=== PATIENT | male | born 1945 | race Caucasian/White ===

== ENCOUNTER 2018-03-18 16:30 | Observation (INO) | payer MEDICARE, OTHER ==
[2018-03-18] MEDS ORDERED: NS 0.9% 1000 ML* 1,000 ML IV ONE (17:00)
--- NOTE | 2018-03-18 17:35 | ED ---
Dizziness - HPI Summary HPI Summary: A 73 y/o M brought in by ambulance presents to ED with c/o acute on chronic dizzy spell with an episode today. Associated sx: rapid HR (150-160bpm at home) onset assoc with low BP at home approx 1515, lightheadedness. (Triage note reviewed by nurse with BP's and HR's that pt noted at home). Rapid HR and hypotension not documented by EMS or in ED. Denies CP, fever, cough. Pert PMHx : extensive cardiac hx including: ablation, PVCs, PACs, CABG, echocardiogram, Holter monitor. Sees Dr. Gamez, cardio at [facility]. Daily medications include baby aspirin, half pill of Metoprolol, Lovastatin. He is a former smoker. ETOH 2 beers a day. Smokes marijuana. Vitals signs at bedside: 79 bpm, BP: 127/79. - History Of Current Complaint Chief Complaint: EDDizziness Stated Complaint: POSS FAST HR Time Seen by Provider: 03/18/18 17:28 Hx Obtained From: Patient, EMS Onset/Duration: Still Present Timing: Constant Severity Initially: Moderate Severity Currently: Moderate Character: Lightheaded, Dizzy Aggravating Factor(s): Nothing Alleviating Factor(s): Nothing Associated Signs And Symptoms: Positive: Palpitations - rapid, Other: - pos: lightheadedness; neg: cough. Negative: Chest Pain, Fever - Allergies/Home Medications Allergies/Adverse Reactions: Allergies Allergy/AdvReac Type Severity Reaction Status Date / Time No Known Allergies Allergy Verified 03/18/18 16:46 PMH/Surg Hx/FS Hx/Imm Hx Previously Healthy: No Cardiovascular History: Reports: Hx Coronary Artery Disease, Hx Hypertension, Other Cardiovascular Problems/Disorders - CABG, echocardio, ablation, PVCs, PACs , Opthamlomology History: Denies: Hx Legally Blind EENT History: Denies: Hx Deafness Neurological History: Denies: Hx Dementia - Surgical History Surgery Procedure, Year, and Place: CABG at [facility]. Appy in [place]. Sinus surgery at [facility] Infectious Disease History: No Infectious Disease History: Denies: Traveled Outside the [place] in Last 30 Days - Family History Known Family History: Positive: Cardiac Disease - mom - Social History Alcohol Use: Daily Hx Substance Use: Yes Substance Use Type: Reports: Marijuana Hx Tobacco Use: Yes Smoking Status (MU): Former Smoker Review of Systems Negative: Fever Positive: Palpitations. Negative: Chest Pain Negative: Cough Gastrointestinal: Negative Musculoskeletal: Negative Skin: Negative Neurological: Other - pos: lightheadedness, dizziness Psychological: Normal All Other Systems Reviewed And Are Negative: Yes Physical Exam - Summary Physical Exam Summary: Appearance: Well-appearing, no pain distress, well-nourished Skin: Warm, color reflects adequate perfusion, dry Head: Normal Head/Face inspection, atraumatic Eyes: Conjunctiva clear ENT: Normal inspection Dental: Multiple caries, bad dentition Neck: Supple, no nodes, no JVD Respiratory: Lungs clear, normal breath sounds, no respiratory distress Cardio: RRR, No murmur, pulses normal, brisk capillary refill Abdomen: Soft, nontender Bowel sounds: Present Musculoskeletal: Strength Intact/ROM intact, no calf tenderness, no edema. Psychological: Normal Neuro: Alert, muscle tone normal, no focal deficit Triage Information Reviewed: Yes Vital Signs On Initial Exam: Initial Vitals Temp Pulse Resp BP Pulse Ox 98.7 F 88 18 149/90 97 03/18/18 16:41 03/18/18 16:41 03/18/18 16:41 03/18/18 16:41 03/18/18 16:41 Vital Signs Reviewed: Yes Diagnostics - Vital Signs Vital Signs Temp Pulse Resp BP Pulse Ox 03/18/18 16:44 85 98 03/18/18 16:43 82 149/90 97 03/18/18 16:41 98.7 F 88 18 149/90 97 - Laboratory Result Diagrams: 03/18/18 17:24 03/18/18 17:24 Lab Statement: Any lab studies that have been ordered have been reviewed, and results considered in the medical decision making process. - Radiology CXR Radiology Interpretation Completed By: ED Physician Summary of Radiographic Findings: cardiomegaly; infiltrate R base. - EKG 1720 Cardiac Rate: NL - 72 bpm EKG Rhythm: Sinus Rhythm ST Segment: Non-Specific - no acute changes EKG Comparison: Other - No prior for comparison Summary of EKG Findings: EKG at 1720 reveals SR 72bpm, 1st degree AV Block (267) , sinus pause, nml IVCT, nml QTc, Left axis (-33), no acute changes, poor R wave progression V1-V3, no prior to compare Re-Evaluation - Re-Evaluation First Eval Re-Evaluation Time: 19:00 Change: Unchanged Comment: denies CP, SOB. No tachycardia or hypotension. Stood to void at bedside without sxs. Advised that will do CTA for further evaluation. Care to Dr. Seay at change of shift. Dizzy Course/Dx - Course Course Of Treatment: Pt is a 73 y/o M presenting with acute on chronic dizzy spell today. Associated sx: rapid HR (150-160bpm at home) onset approx 1515, lightheadedness. Pert PMHx: extensive cardiac hx including: ablation, PVCs, PACs , CABG, echocardiogram, Holter monitor. Sees Dr. Gamez, cardio at [facility]. Daily medications include baby aspirin, half pill of Metoprolol, Lovastatin. CXR shows cardiomegaly and infiltrates in R base. Lab work is unremarkable except Ddimer is 299, BNP: 226. Initial troponin is 0.01. UA reviewed. Allergies noted, high blood pressure noted. Pt medications reviewed this visit. Pt will be signed out to Dr. Seay at shift change pending CTA, dispo. - Diagnoses Differential Diagnosis/HQI/PQRI: Anxiety, Coronary Artery Disease, CVA, Medication Reaction, Metabolic Abnormality Provider Diagnoses: Dizziness Discharge - Sign-Out/Discharge Documenting (check all that apply): Sign-Out Patient Signing out patient TO: Brandy Seay - Pending CTA, dispo - Discharge Plan - Attestation Statements Document Initiated by Scribe: Yes Documenting Scribe: Rodri Hernandez Provider For Whom Sonu is Documenting (Include Credential): Dr. Christi Zamorano MD Scribe Attestation: Rodri Youngblood, scribed for Dr. Christi Zamorano MD on 03/18/18 at 2054. Scribe Documentation Reviewed: Yes Provider Attestation: The documentation as recorded by the Rodri walker accurately reflects the service I personally performed and the decisions made by me, Dr. Christi Zamorano MD Status of Scribe Document: Viewed
[2018-03-18 17:39] LABS: ABS Basophils 0.1 10^3/ul (0-0.2); ABS Eosinophils 0.2 10^3/ul (0-0.6); ABS Lymphocytes 1.3 10^3/ul (1.0-4.8); ABS Monocytes 0.8 10^3/ul (0-0.8); ABS Neutrophils 5.7 10^3/ul (1.5-7.7); ABS Nucleated RBC 0 10^3/ul; Eosinophil % 2.2 %; Hematocrit 40 % (42-52); Hemoglobin 13.1 g/dl (14.0-18.0); Lymphocyte % 16.1 %; Mean Corpuscular HGB Conc 33 g/dl (31-36); Mean Corpuscular Hemoglobin 27 pg (27-31); Mean Corpuscular Volume 82 fL (80-94); Mean Platelet Volume 9.5 fL (7.4-10.4); Nucleated Red Blood Cells % 0.1; Platelet Count 236 10^3/ul (150-450); Red Blood Count 4.89 10^6/ul (4.00-5.40); Red Cell Distribution Width 15 % (10.5-15)
[2018-03-18 17:49] LABS: INR 0.86 (0.77-1.02)
[2018-03-18 18:01] LABS: ALT 23 U/L (7-52); AST 27 U/L (13-39); Albumin/Globulin Ratio 1.5 (1-3); Alkaline Phosphatase 82 U/L (34-104); Anion Gap 7 mmol/L (2-11); BUN/Creatinine Ratio 8.8 (8-20); Blood Urea Nitrogen 7 mg/dL (6-24); C Reactive Protein 7.41 mg/L (<8.01); CO2 Carbon Dioxide 26 mmol/L (22-32); Calcium 9.2 mg/dL (8.6-10.3); Chloride 98 mmol/L (101-111); EGFR Non-African American 94.8 (>60); Globulin 2.6 g/dL (2-4); Glucose 105 mg/dL (70-100); Magnesium 1.8 mg/dL (1.9-2.7); Potassium 4.5 mmol/L (3.5-5.0); Sodium 131 mmol/L (135-145); Total Protein 6.6 g/dL (6.4-8.9)
[2018-03-18 18:06] LABS: Alcohol < 10 mg/dL (<10)
[2018-03-18 18:20] LABS: TSH (Thyroid Stimulating Horm) 1.12 mcIU/mL (0.34-5.60)
[2018-03-18 18:29] LABS: Urine Appearance Clear; Urine Bacteria Absent (Absent); Urine Bilirubin Negative (Negative); Urine Blood 1+ (Negative); Urine Color Straw; Urine Glucose Negative (Negative); Urine Ketones Negative (Negative); Urine Nitrite Negative (Negative); Urine Protein 1+(30 mg/dL) (Negative); Urine Red Blood Cell Trace(0-2/hpf) (Absent); Urine Specific Gravity 1.005 (1.010-1.030); Urine Urobilinogen Negative (Negative); Urine White Blood Cell Trace(0-5/hpf) (Absent)
[2018-03-18] MEDS ORDERED: Iodixanol* (CONTRAST) 320 MG/ML 100 ML SDV IV ONE (19:36)
--- NOTE | 2018-03-18 21:19 | ED ---
Progress - Progress Note Progress Note: Sign-out from Dr. Zamorano at 1900. EKG was remarkable for arrythmia. Patient will be admitted to the hospital. This plan was discussed with the patient and he was agreeable with this plan. Chest CTA per radiologist: No PE. No additional findings to correlate with patient's symptamology. ED Provider has reviewed this imaging report. Re-Evaluation - Re-Evaluation First Eval Re-Evaluation Time: 19:00 Change: Unchanged Comment: denies CP, SOB. No tachycardia or hypotension. Stood to void at bedside without sxs. Advised that will do CTA for further evaluation. Care to Dr. Seay at change of shift. Course/Dx - Course Course Of Treatment: Sign-out from Dr. Zamorano at 1900. EKG was remarkable for arrythmia. Patient will be admitted to the hospital. This plan was discussed with the patient and he was agreeable with this plan. Paged Rosario Padilla, Hospitalist at [phone]. Chest CTA per radiologist: No PE. No additional findings to correlate with patient's symptamology. ED Provider has reviewed this imaging report. Rosario Padilla accepted patient for admissino at 2341. - Diagnoses Provider Diagnoses: Dizziness, Arrhythmia - Provider Notifications Discussed Care Of Patient With: Rosario Padilla - Hospitalist Time Discussed With Above Provider: 23:41 Instructed by Provider To: Admit As Inpatient Discharge - Sign-Out/Discharge Documenting (check all that apply): Patient Departure, Receiving Sign-Out Receiving patient FROM: Christi Zamorano - Discharge Plan Condition: Stable Disposition: ADMITTED TO [facility] - Attestation Statements Document Initiated by Scribe: Yes Documenting Scribe: Tevin Wen Provider For Whom Scribe is Documenting (Include Credential): Brandy Seay MD Scribe Attestation: Tevin Youngblood, scribed for Brandy Seay MD on 03/18/18 at 2342. Status of Scribe Document: Ready
[2018-03-18] MEDS ORDERED: Albuterol 2.5 MG/3 ML NEB.SOL* (0.083%) INH PRN (23:58)
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
[2018-03-19 01:11] LABS: Barbiturates Urine Screen None Detected (None Detect); Benzodiazepine Urine Screen None Detected (None Detect); Urine Cannabinoids Screen Presumptive Positive (None Detect)
[2018-03-19] MEDS: NS 0.9% 1000 ML* 1,000 ML IV SCH ×2 (01:42→16:58)
[2018-03-19 05:54] LABS: HDL Cholesterol 55.3 mg/dL; Magnesium 1.9 mg/dL (1.9-2.7); Phosphorus 3.8 mg/dL (2.5-5.0)
[2018-03-19 06:39] LABS: TSH (Thyroid Stimulating Horm) 1.95 mcIU/mL (0.34-5.60)
[2018-03-19 06:40] LABS: Free T4 0.78 ng/dL (0.61-1.12)
[2018-03-19] MEDS ORDERED: Magnesium Sulfate 2 GM IV* 2 GM/50 ML BAG IVPB ONE (07:41)
[2018-03-19] MEDS: Aspirin 81 mg CHEW TAB* 81 MG TAB.CHEW PO SCH (07:44)
[2018-03-19] MEDS: Atorvastatin* 10 MG TAB PO SCH (07:44)
[2018-03-19] MEDS: Metoprolol Tartrate TAB* 25 MG PO SCH (07:44)
[2018-03-19] MEDS: Acetaminophen TAB* 325 MG PO PRN ×2 (07:44→16:11)
[2018-03-19 08:06] LABS: ABS Basophils 0.1 10^3/ul (0-0.2); ABS Eosinophils 0.2 10^3/ul (0-0.6); ABS Lymphocytes 1.4 10^3/ul (1.0-4.8); ABS Monocytes 0.6 10^3/ul (0-0.8); ABS Neutrophils 4.5 10^3/ul (1.5-7.7); ABS Nucleated RBC 0 10^3/ul; Eosinophil % 3.5 %; Hematocrit 39 % (42-52); Hemoglobin 12.8 g/dl (14.0-18.0); Lymphocyte % 20.6 %; Mean Corpuscular HGB Conc 33 g/dl (31-36); Mean Corpuscular Hemoglobin 27 pg (27-31); Mean Corpuscular Volume 83 fL (80-94); Mean Platelet Volume 10.1 fL (7.4-10.4); Nucleated Red Blood Cells % 0.1; Platelet Count 254 10^3/ul (150-450); Red Blood Count 4.75 10^6/ul (4.00-5.40); Red Cell Distribution Width 15 % (10.5-15); White Blood Count 6.9 10^3/ul (3.5-10.8)
[2018-03-19 08:22] LABS: EGFR Non-African American 82.7 (>60); Potassium 4.2 mmol/L (3.5-5.0)
--- NOTE | 2018-03-19 14:36 | PN ---
Subjective Date of Service: 03/19/18 Interval History: Resting in bed. Symptom free since admission. Tele sins with first degree with average bpm 70 Objective Active Medications: Acetaminophen (Tylenol Tab*) 650 mg PO Q6H PRN PRN Reason: FEVER/PAIN Last Admin: 03/19/18 07:44 Dose: 650 mg Albuterol (Ventolin 2.5 Mg/3 Ml Neb.Tracie*) 2.5 mg INH [id number] AWAKE PRN PRN Reason: sob/wheezing Aspirin (Aspirin 81 Mg Chew Tab*) 81 mg PO DAILY [facility] Last Admin: 03/19/18 07:44 Dose: 81 mg Atorvastatin Calcium (Lipitor*) 10 mg PO DAILY [facility] Last Admin: 03/19/18 07:44 Dose: 10 mg Sodium Chloride (Ns 0.9% 1000 Ml*) 1,000 mls @ 100 mls/hr IV PER RATE [facility] Last Admin: 03/19/18 01:42 Dose: 100 mls/hr Metoprolol Tartrate (Lopressor Tab*) 12.5 mg PO DAILY [facility] Last Admin: 03/19/18 07:44 Dose: 12.5 mg Vital Signs - 8 hr 03/19/18 03/19/18 03/19/18 07:22 07:43 07:47 Temperature 97.2 F Pulse Rate 58 Respiratory 20 Rate Blood Pressure 143/84 (mmHg) O2 Sat by Pulse 98 Oximetry Oxygen Devices in Use Now: None Appearance: Chronically ill appearing Eyes: No Scleral Icterus Ears/Nose/Mouth/Throat: Clear Oropharnyx, Mucous Membranes Moist Neck: NL Appearance and Movements; NL JVP Respiratory: Symmetrical Chest Expansion and Respiratory Effort, Clear to Auscultation Cardiovascular: NL Sounds; No Murmurs; No JVD, RRR, No Edema Abdominal: NL Sounds; No Tenderness; No Distention Lymphatic: No Cervical Adenopathy Extremities: No Edema Skin: No Rash or Ulcers Neurological: Alert and Oriented x 3 Nutrition: Taking PO's Result Diagrams: 03/19/18 05:25 03/19/18 05:25 Additional Lab and Data: Laboratory Results - last 24 hr 03/18/18 03/19/18 03/19/18 20:47 00:25 00:46 WBC RBC Hgb Hct MCV MCH MCHC RDW Plt Count MPV Neut % (Auto) Lymph % (Auto) Alfalfa % (Auto) Eos % (Auto) Baso % (Auto) Absolute Neuts (auto) Absolute Lymphs (auto) Absolute Monos (auto) Absolute Eos (auto) Absolute Basos (auto) Absolute Nucleated RBC Nucleated RBC % Sodium Potassium Chloride Carbon Dioxide Anion Gap BUN Creatinine Est GFR ( Amer) Est GFR (Non-Af Amer) BUN/Creatinine Ratio Glucose Calcium Ionized Calcium Phosphorus Magnesium Troponin I 0.02 0.02 Triglycerides Cholesterol LDL Cholesterol HDL Cholesterol TSH Free T4 Urine Opiates Screen None detected Ur Barbiturates Screen None detected Ur Phencyclidine Scrn None detected Ur Amphetamines Screen None detected U Benzodiazepines Scrn None detected Urine Cocaine Screen None detected U Cannabinoids Screen Presumptive positive A 03/19/18 03/19/18 03/19/18 05:25 05:25 05:25 WBC 6.9 RBC 4.75 Hgb 12.8 L Hct 39 L MCV 83 MCH 27 MCHC 33 RDW 15 Plt Count 254 MPV 10.1 Neut % (Auto) 65.2 Lymph % (Auto) 20.6 Alfalfa % (Auto) 9.2 Eos % (Auto) 3.5 Baso % (Auto) 1.5 Absolute Neuts (auto) 4.5 Absolute Lymphs (auto) 1.4 Absolute Monos (auto) 0.6 Absolute Eos (auto) 0.2 Absolute Basos (auto) 0.1 Absolute Nucleated RBC 0 Nucleated RBC % 0.1 Sodium 136 Potassium 4.2 Chloride 102 Carbon Dioxide 26 Anion Gap 8 BUN 9 Creatinine 0.90 Est GFR ( Amer) 100.1 Est GFR (Non-Af Amer) 82.7 BUN/Creatinine Ratio 10.0 Glucose 107 H Calcium 9.0 Ionized Calcium 1.20 Phosphorus 3.8 Magnesium 1.9 Troponin I Triglycerides 149 Cholesterol 165 LDL Cholesterol 80 HDL Cholesterol 55.3 TSH 1.95 Free T4 0.78 Urine Opiates Screen Ur Barbiturates Screen Ur Phencyclidine Scrn Ur Amphetamines Screen U Benzodiazepines Scrn Urine Cocaine Screen U Cannabinoids Screen EKG Data: ns not acute st t changes Assess/Plan/Problems-Billing Assessment: this is 73 yr old wm with hx of recent cabg 11/2017 ? hx of cardiac ablation in the past called ems after he had an episode of increased hr to 160 with sbp 70s on home montiering and felt dizzy. pt had trop times two neg ua neg even had cta of chest came back neg - Patient Problems (1) CAD (coronary artery disease) Comment: - S/P Cabg 11/2017 - Continue his home dose of asa and lopresor - Trops negative (2) COPD (chronic obstructive pulmonary disease) Comment: - Stable - Supportive care (3) Cardiac arrhythmia Comment: - [facility] revealed numerous PACs and PVCs. In addition, patient had runs of SVT with longest 53 seconds which appeared to be paroxyasmal atria tachycardia, 7 runs of nonsustained VT with longest being 11 beats (all asymptomatic), and symptoms of dizziness and lightheadedness were recorded in diary and reported with underlying sinus rhythm. - Previous ablasion for SVT - Seen in [facility] and we are awaiting reports. - Not orthostatic this am - Tsh and free T4 wnl - Continue his lopressor home dose - [facility] for [facility] in one month, noted small pericardial effusion with no tamponade on previous echo, and due to presenting symptoms (4) EtOH dependence Comment: - Now drinks only two beers daily has cut down from 6 beers daily since 11/2017 - Monitor for withdrawl - Supportive care (5) Hyperlipidemia Comment: - Continue his current dose of statin (6) Hyponatremia Comment: - 131 on admission. Now 136 (7) Hypotension Comment: - Per yesterdays EMS report patient's home BP read: BP 102/70 and HR 152 at 1507 and BP 77/61 and HR 161 - Currently hypertensive. - Cont home medications as same Attending: Nicolas Lopez
--- NOTE | 2018-03-19 16:14 | ECHO ---
Patient: DINA LYNCH [facility] Rec#: [id number] : 1945 Date: 03/19/2018 Age: 73y Height: 173 cm / 68.1 in Weight: 77.1 kg / 169.9 lbs Sex: M BSA: 1.91 Room#: [facility] Admit Date#: 03/18/2018 Type: Inpatient Referring: Razia Valdez Reading: Amish Lewis MD Behavior Interventionist: Citlaly Jarrett RD Transthoracic Echocardiogram Indication: Pericardial effusion, s/p CABG, dizziness BP: 143/84 HR: 67 Rhythm: NSR with PVCs Findings History: S/P ablation, PVCs, PACs, s/p CABG, HTN, COPD, CHF. Technical Comments: The study quality is good. Completed at 1545. Left Ventricle: The left ventricular chamber size is normal. There is no left ventricular hypertrophy. Global left ventricular wall motion and contractility are within normal limits. Left ventricular systolic function is at the lower limits of normal. The estimated ejection fraction is 50-55%. Post surgical hypokinesis of the interventricular septum is observed consistent with coronary artery bypass. Abnormal left ventricular diastolic function is observed. The left ventricular diastolic filling pattern is consistent with pseudonormalization. Left Atrium: The left atrium is moderately dilated. Right Ventricle: Moderator Band present. The right ventricular cavity size is normal. The right ventricular global systolic function is normal. Right Atrium: The right atrium is moderately dilated. There is evidence of an atrial septal aneurysm. No obvious shunting. Aortic Valve: The aortic valve is trileaflet. The aortic valve leaflets are mildly thickened. There is aortic annular calcification. There is no evidence of aortic regurgitation. There is no evidence of aortic stenosis. Mitral Valve: The mitral valve leaflets are mildly thickened. There is trace to mild mitral regurgitation. Tricuspid Valve: The tricuspid valve leaflets are normal. There is trace to mild tricuspid regurgitation. The right ventricular systolic pressure is estimated at 19 mmHg. No pulmonary hypertension is noted. Pulmonic Valve: The pulmonic valve appears normal. There is no evidence of pulmonic regurgitation. There is no pulmonic stenosis. Pericardium: There is no significant pericardial effusion. Aorta: There is no dilatation of the ascending aorta. There is no dilatation of the aortic arch. There is mild dilatation of the aortic root. Pulmonary Artery: The main pulmonary artery appears normal. Venous: The inferior vena cava appears normal in size. There is a greater than 50% respiratory change in the inferior vena cava dimension. Conclusions Left ventricular systolic function is at the lower limits of normal. The estimated ejection fraction is 50-55%. Global left ventricular wall motion and contractility are within normal limits. The left ventricular chamber size is normal. The left atrium is moderately dilated. The right atrium is moderately dilated. Functionally benign heart valves. There is no significant pericardial effusion. There is no prior echocardiogram available to compare with at this time. Measurements Name Value Normal Range RVIDd (AP) 2D 3.5 cm (0.9 - 2.6) RVDdMajor (2D) 4.3 cm (2.2 - 4.4) RAd ISD 4CH 6.1 cm (3.4 - 4.9) RA (A4C)W 4.7 cm (2.9 - 4.6) IVSd (2D) 1 cm (0.6 - 1) LVPWd (2D) 0.9 cm (0.6 - 1) LVIDd (2D) 5.1 cm (3.6 - 5.4) LVIDs (2D) 4.5 cm - LV FS (2D) 26 % (25 - 45) Aortic Annulus 2 cm (1.4 - 2.6) Ao root diameter (2D) 3.7 cm (2.1 - 3.5) Ascending Ao 3.4 cm (2.1 - 3.4) Aortic arch 1.7 cm (1.8 - 3.4) LA dimension (AP) 2D 4.2 cm (2.3 - 3.8) LAd ISD 4CH 6.4 cm (2.9 - 5.3) LA ISD 4CH W 4.6 cm (2.5 - 4.5) Name Value Normal Range LA ESV BP (A/L) index 50 ml/m2 - Name Value Normal Range MV E-wave Vmax 0.6 m/sec - MV deceleration time 257 msec - MV A-wave Vmax 0.5 m/sec - MV E:A ratio 1.1 ratio - LV septal e' Vmax 0.06 m/sec - LV lateral e' Vmax 0.08 m/sec - LV E:e' septal ratio 107.5 ratio - Name Value Normal Range AV Vmax 1.5 m/sec - AV VTI 31 cm - AV peak gradient 9 mmHg - AV mean gradient 5 mmHg - LVOT Vmax 0.6 m/sec - LVOT VTI 13 cm - LVOT peak gradient 2 mmHg - LVOT mean gradient 1 mmHg - LUNA Vmax 1 m/sec - Name Value Normal Range TR Vmax 2 m/sec - TR peak gradient 16 mmHg - RAP 3 mmHg - RVSP 19 mmHg - IVC diameter 1.2 cm - Name Value Normal Range PV Vmax 0.7 m/sec - PV peak gradient 2 mmHg -
[2018-03-20] MEDS: Acetaminophen TAB* 325 MG PO PRN ×2 (00:08→09:57)
[2018-03-20] MEDS: NS 0.9% 1000 ML* 1,000 ML IV SCH (03:56)
[2018-03-20 06:12] LABS: ABS Basophils 0.1 10^3/ul (0-0.2); ABS Eosinophils 0.3 10^3/ul (0-0.6); ABS Lymphocytes 1.2 10^3/ul (1.0-4.8); ABS Monocytes 0.8 10^3/ul (0-0.8); ABS Neutrophils 5.5 10^3/ul (1.5-7.7); ABS Nucleated RBC 0 10^3/ul; Eosinophil % 4.3 %; Hematocrit 39 % (42-52); Hemoglobin 12.7 g/dl (14.0-18.0); Lymphocyte % 15.8 %; Mean Corpuscular HGB Conc 32 g/dl (31-36); Mean Corpuscular Hemoglobin 27 pg (27-31); Mean Corpuscular Volume 83 fL (80-94); Mean Platelet Volume 9.8 fL (7.4-10.4); Nucleated Red Blood Cells % 0.1; Platelet Count 224 10^3/ul (150-450); Red Blood Count 4.75 10^6/ul (4.00-5.40); Red Cell Distribution Width 15 % (10.5-15); White Blood Count 7.9 10^3/ul (3.5-10.8)
[2018-03-20 06:35] LABS: BUN/Creatinine Ratio 12.2 (8-20); Calcium 8.6 mg/dL (8.6-10.3); EGFR Non-African American 92.1 (>60); Potassium 4.3 mmol/L (3.5-5.0)
[2018-03-20] MEDS: Aspirin 81 mg CHEW TAB* 81 MG TAB.CHEW PO SCH (08:07)
[2018-03-20] MEDS: Atorvastatin* 10 MG TAB PO SCH (08:07)
[2018-03-20] MEDS: Metoprolol Tartrate TAB* 25 MG PO SCH (08:07)
[2018-03-20 12:01] VITALS: BP 127/69
--- NOTE | 2018-03-21 04:58 | DS ---
Amended report to enter cosigning physician. CC: Dr. Lexx Gamez* DISCHARGE SUMMARY: DATE OF ADMISSION: 03/19/18 DATE OF DISCHARGE: 03/20/18 PRIMARY CARE PROVIDER: Albertina MASTERSON. PRIMARY OUTPATIENT FORENSIC EXAMINER: Dr. Lexx Gamez. ATTENDING PHYSICIAN: Dr. Nicolas Lopez* (dictated by Makenzie Nevarez NP) PRIMARY DIAGNOSES: 1. Dizziness. 2. Tachycardia. 3. Hypotension. SECONDARY DIAGNOSES: 1. Coronary artery disease, status post coronary artery bypass graft November 2017. 2. Cardiac arrhythmia, status post ablation for supraventricular tachycardia. 3. History of ethanol abuse. Reports greater than 6 beers daily, but has decreased to 2 beers daily. 4. Tobacco use. 5. Chronic obstructive pulmonary disease. 6. Hyperlipidemia. 7. Marijuana use. CONSULTATIONS WHILE IN THE HOSPITAL: There were no consultations. PROCEDURES WHILE IN THE HOSPITAL: There were no procedures. STUDIES WHILE IN THE HOSPITAL: 1. Chest x-ray: Impression: Postsurgical changes and cardiomegaly. 2. Chest/thorax CTA: Impression: No pulmonary emboli and no additional findings to correlate with the patient's symptomatology. 3. Transthoracic echo: Impression: Left ventricular systolic function is at low limits of normal. The estimated ejection fraction is 50% to 55%. Global left ventricular wall motion and contractility are within normal limits. Left ventricle chamber size is normal. Left atrium is moderately dilated. Right atrium is moderately dilated. Functionally benign heart valves. There is no significant pericardial effusion. No prior echocardiogram available to compare at this time. DISCHARGE HOME MEDICATIONS: New home medications: No new home medications. Continued home medications: 1. Metoprolol 12.5 mg p.o. daily. 2. Lipitor 10 mg p.o. daily. 3. Aspirin 81 mg p.o. daily. Changed home medications: No home medications were changed. Discontinued home medications: No home medications were discontinued. HISTORY OF PRESENT ILLNESS/HOSPITAL COURSE: Mr. Mckeon is a 73-year-old male with a past medical history significant for SVT, status post ablation, CAD, status post CABG, EtOH abuse, tobacco use; who presented to the ED on 03/19/18 with complaints of increased heart rate and decreased blood pressure. Please see history and physical dictated by Dr. Padilla for complete summary of the events leading up to this hospitalization, but in short the patient reports he was feeling dizzy at home; therefore, took his blood pressure and noted his blood pressure had dropped to an SBP of 70 and he had noted heart rate of 160. While in the emergency department, the patient did not have documented rapid heart rate or hypotension. EKG revealed sinus rhythm with rate of 72 and first- degree AV block. In addition, during his emergency department stay, he was noted to have no tachycardia or hypertension. He also was able to stand at the bedside to void without symptoms. Due to the patient's noted first-degree block and no previous EKG to correlate, Hospitalist were asked to admit the patient for further evaluation. During this hospital stay, the patient was on the telemetry floor. While on telemetry, the patient remained in sinus with first-degree block. He had no episodes of tachycardia or any other atypical rhythms. The patient did have occasional PVC. In addition, the patient had serial trops which were all negative. The patient had imaging as mentioned above. The patient does report he had 1 or 2 episodes of dizziness and the nurse was notified. Per the staff nurse, the patient did not have changes on telemetry and/or changes in vital signs with episodes of dizziness. Records from [facility] and [place] [facility] [place] were obtained and reviewed personally. Previous echo in these records reports pericardial effusion which was not noted on our echo, therefore has resolved. When comparing previous echo to current echo, the patient does not appear to have any acute new findings. In addition, the patient's report from Holter monitor was reviewed. It notes that the patient had occasional short runs of VT with the longest being 11 beats, but did not correlate with symptoms. It does mention that symptoms were documented in the diary and were correlated with underlying sinus rhythm. I have also reviewed the notes from the clinical cytogeneticist scientist from [place] who does not believe the patient is a candidate for an ICD due to good ejection fraction and no sustained problematic arrhythmia. [employer] in [place] has recommended that the patient implement lifestyle changes including decreasing alcohol, decreasing smoking, decreasing marijuana use, increasing hydration, and implementing other healthy lifestyle changes. She has encouraged the patient to follow up with his primary clinical cytogeneticist scientist for further assessment status post CABG. Today, the patient is stable for discharge. The patient reports he feels safe for discharge. Vital signs are as follows: Temp 97.5, HR 68, RR 16, O2 of 98% on room air, and BP 127/69. REVIEW OF SYSTEMS: A 14-point review of systems was completed and all negative. PHYSICAL EXAMINATION: General: Mr. Mckeon is a well-developed, elderly man, sitting in bed in no acute distress. Appears the stated age. The patient ambulated around the unit today without difficulty. HEENT: EOMs intact. PERRLA. Sclerae without icterus. Oral mucous membranes are moist without lesions. Tonsils without erythema or exudate. Pharynx clear. Neck: Full range of motion. No lymphadenopathy. Respiratory: Symmetrical chest expansion. No accessory muscle use. Lung sounds clear to auscultation. No rhonchi, wheezing, or rubs. CV: Regular rate and rhythm. S1/S2 present. No murmurs, rubs, or gallops. No JVD. Extremities: Skin is warm and smooth bilaterally. No edema. No clubbing or cyanosis. Pedal pulses 2+ bilaterally. Musculoskeletal: Full range of motion. No pain or deformities. Abdomen: Soft, nontender to palpation. Bowel sounds x4. Nondistended. Neuro: Awake, alert, and oriented x4. Cranial nerves II through XII intact. Moves all extremities well. Motor strength is 5/5 in upper and lower extremities bilaterally. Steady gait with no impairment. Skin: Grossly intact without lesions. LABORATORY DATA: Labs obtained 03/10, sodium 137, potassium 4.3, chloride 104, carbon dioxide 27, BUN 10, creatinine 0.82. WBC 7.9, RBC 4.75, hemoglobin 12.7 , hematocrit 39, platelets 224. FOLLOWUP/DISCHARGE PLAN: 1. Tachycardia: As previously mentioned, the patient did not have any documented tachycardia while admitted. I have encouraged the patient to follow his heart rate at home and record readings. I have discussed signs and symptoms of worsening condition and when to call 911. 2. Hypotension: The patient had no recorded hypotension while admitted. The patient was negative for orthostatic hypotension. I have encouraged the patient to continue monitoring blood pressure at home and record readings. 3. Dizziness: The etiology of this dizziness is unclear. The patient does admit to smoking marijuana prior to most recent episode of dizziness. I suspect it could be multifactorial due to EtOH, tobacco, marijuana, dehydration. I did discuss with the patient the necessity for further evaluation with primary care provider and possibly Neurology. 4. CAD, status post CABG: The patient should follow up as previously recommended. 5. Cardiac arrhythmia SVT, status post ablation: As previously mentioned, the patient did not have any documented SVT. The patient should follow up with his primary cardiology as recommended. 6. EtOH. The patient has been encouraged to continue to decrease the alcohol intake. 7. Tobacco use: The patient reports he has been decreasing tobacco use since his CABG in November 2017. Discussed continuing to decrease tobacco use. 8. COPD: The patient should follow up with primary care provider as needed. 9. Hyperlipidemia: The patient should continue statin as same. 10. Marijuana use: Discussed decreasing use of marijuana. Discussed marijuana use and its association with the current symptoms. The patient should return to the ER or the nearest hospital if he experiences any worsening of symptoms, shortness of breath, lightheadedness, dizziness, chest discomfort, high fevers, chills, night sweats, loss of consciousness, or any other worrisome signs or symptoms. This is a summarized report of complex medical history and hospital stay. For further details, please see the entire medical record. This plan was discussed with my attending, Dr. Nicolas Lopez, who agrees with my plan. TIME SPENT: Approximately 45 minutes were spent on this discharge, greater than half that time was spent [id number] with the patient discussing my discharge plans and instructions. MAKENZIE NEVAREZ NP [id number]/[facility] #: [id number] ABDELRAHMAN
== END 2018-03-20 17:15 | disposition home or self-care (01) ==
LOC: ED 16:30 → MEDTELE 23:58
PROVIDERS: ADMIT Internal Medicine; ATTEND Student in an Organized Health Care Education/Training Program
DX: R42 Dizziness and giddiness (principal); R00.0 Tachycardia, unspecified; I95.9 Hypotension, unspecified; I25.10 Atherosclerotic heart disease of native coronary artery without angina pectoris; Z95.5 Presence of coronary angioplasty implant and graft; I49.9 Cardiac arrhythmia, unspecified; Z72.0 Tobacco use; J44.9 Chronic obstructive pulmonary disease, unspecified; E78.5 Hyperlipidemia, unspecified; F12.90 Cannabis use, unspecified, uncomplicated; Z79.82 Long term (current) use of aspirin; Z87.891 Personal history of nicotine dependence
CPT/HCPCS: 36415; 71045; 71275; 80048; 80053; 80061; 80307; 80320; 81003; 81015; 82330; 83605; 83735; 83880; 84100; 84439; 84443; 84484; 85025; 85379; 85610; 86140; 87086; 93005; 93306; 96361; 96365; 99285; A9270-GY; G0378; G0480; J3475; Q9967